=== PATIENT | female | born 1965 | race Hispanic/Latino ===

== ENCOUNTER → 2024-09-26 | Day surgery (SDC) | payer OTHER ==
[~2024-09-26] MED LIST: BIOTIN1 MG PO; LIDOCAINE HCL 2% LOCAL INJ 5 ML SDV VIAL INJ ONE; MIDAZOLAM HCL 2 MG/2 ML VIAL ONE; PROPOFOL IV EMULSION 10 MG/ML 20 ML VIAL ONE
[2024-09-26 09:50] VITALS: TEMP 98.5
[2024-09-26 10:30] VITALS: BP 131/82; PULSE 66; RESP 16; O2SAT 100
[2024-09-26] MEDS: LACTATED RINGER'S 1,000 ML ONE (14:29)
== END | disposition home or self-care (01) ==
LOC: OR 08:28
PROVIDERS: ATTEND Internal Medicine Gastroenterology
DX: Z12.11 Encounter for screening for malignant neoplasm of colon (principal); D12.3 Benign neoplasm of transverse colon; D12.5 Benign neoplasm of sigmoid colon; K63.89 Other specified diseases of intestine; K57.30 Diverticulosis of large intestine without perforation or abscess without bleeding; K64.1 Second degree hemorrhoids; K21.9 Gastro-esophageal reflux disease without esophagitis; R06.02 Shortness of breath; Z01.810 Encounter for preprocedural cardiovascular examination; Z68.41 Body mass index [BMI] 40.0-44.9, adult
CPT/HCPCS: 45385; 93005; J2003; J2250; J2704; J7121